=== PATIENT | male | born 1950 | race Caucasian/White ===

== ENCOUNTER 2022-07-25 11:30 | Inpatient (IN) | payer OTHER ==
[2022-07-25] MEDS ORDERED: Ondansetron ODT 4 MG TAB PO PRN (13:12)
[2022-07-25] MEDS ORDERED: HYDROcodone/Acetaminophen 5/325 mg Tablet PO PRN (13:12)
[2022-07-25 14:28] LABS: Troponin I Less than 0.010 ng/mL (< 0.028)
[2022-07-25 14:47] VITALS: BMI 38.1
[2022-07-25] MEDS ORDERED: Clindamycin (PEDI) 600 MG in Syringe 0 ML IVPB SCH (15:00)
[2022-07-25] MEDS: Clindamycin/D5W 600 MG in Premix Bag 1 BAG IVPB SCH ×2 (15:59→20:17)
[2022-07-25] MEDS: Warfarin Sodium 7.5 MG TAB PO SCH (18:10)
[2022-07-25] MEDS: Atorvastatin Calcium 40 MG TAB PO SCH (20:18)
[2022-07-25] MEDS: Famotidine 20 MG TAB PO SCH (20:18)
[2022-07-26] MEDS ORDERED: Regadenoson 0.4 MG/5 ML SYRINGE ONE (09:08)
[2022-07-26] MEDS: Clindamycin/D5W 600 MG in Premix Bag 1 BAG IVPB SCH ×3 (14:01→21:12)
[2022-07-26] MEDS: Famotidine 20 MG TAB PO SCH ×2 (14:05→21:12)
[2022-07-26] MEDS: Aspirin 81 mg Enteric Coated Tablet PO SCH (14:24)
[2022-07-26] MEDS: Saccharomyces boulardii 250 MG CAP PO SCH (14:24)
[2022-07-26] MEDS: Warfarin Sodium 7.5 MG TAB PO SCH (17:13)
[2022-07-26] MEDS: Atorvastatin Calcium 40 MG TAB PO SCH (21:12)
[2022-07-27 04:54] LABS: #Eosinphils 0.2 thou/uL (0.0-0.7); #Lymphocytes 1.7 thou/uL (1.20-3.40); #Monocytes 0.6 thou/uL (0.11-0.59); #Neutrophils 4.8 thou/uL (1.40-6.50); %Basophils 0.3 % (0.0-1.0); %Lymphocytes 23.4 % (21.0-51.0); %Monocytes 7.8 % (0.0-10.0); %Neutrophils 65.5 % (42.0-75.0); Mean Corpuscular HGB CONC 31.2 g/dL (32.0-36.0); Mean Corpuscular Hemoglobin 29.6 pg (27.0-31.0); Mean Corpuscular Volume 94.8 fl (78.0-98.0); Mean Platelet Volume 7.9 fL (7.4-10.4); Platelet Count 184 10x3/uL (130-400); RBC Distribution Width 13.2 % (11.5-14.5); Red Blood Cell (RBC) Count 5.08 mill/uL (4.70-6.10); White Blood Cell (WBC) Count 7.3 10x3/uL (4.8-10.8)
[2022-07-27 05:05] LABS: Anion Gap 15 mmol/L (10-20); BUN (Urea Nitrogen) 17 mg/dL (8.4-25.7); Calc. Creatinine Clearance 131 mL/min (70-130); Calcium 8.8 mg/dL (7.8-10.44); Carbon Dioxide 18 mmol/L (23-31); Chloride 109 mmol/L (98-107); Estimated GFR 91; Glucose 120 mg/dL (83-110); Potassium 3.9 mmol/L (3.5-5.1); Sodium 138 mmol/L (136-145)
[2022-07-27] MEDS ORDERED: Furosemide 40 MG/4 ML VIAL SLOW IVP SCH (09:00)
[2022-07-27 09:03] LABS: INR-International Normal Ratio 1.3; Prothrombin Time 16.5 sec (12.0-14.7)
[2022-07-27] MEDS: Saccharomyces boulardii 250 MG CAP PO SCH (09:15)
[2022-07-27] MEDS: Aspirin 81 mg Enteric Coated Tablet PO SCH (09:15)
[2022-07-27] MEDS: Famotidine 20 MG TAB PO SCH (09:15)
[2022-07-27] MEDS: Clindamycin/D5W 600 MG in Premix Bag 1 BAG IVPB SCH (09:16)
[2022-07-27 11:40] VITALS: BP 144/59; TEMP 97.5
== END 2022-07-27 12:15 | disposition home or self-care (01) | DRG 603 ==
LOC: EEVIPCON → CCU 12:44 → 2NO 16:31
PROVIDERS: ADMIT Hospitalist; ATTEND Hospitalist
PROC: 3E033XZ Introduction of Vasopressor into Peripheral Vein, Percutaneous Approach (ICD-10-PCS; principal; 2022-07-25)
DX: L03.116 Cellulitis of left lower limb (principal); I48.20 Chronic atrial fibrillation, unspecified; I50.32 Chronic diastolic (congestive) heart failure; I95.2 Hypotension due to drugs; L03.115 Cellulitis of right lower limb; R07.89 Other chest pain; I25.10 Atherosclerotic heart disease of native coronary artery without angina pectoris; J44.9 Chronic obstructive pulmonary disease, unspecified; G47.33 Obstructive sleep apnea (adult) (pediatric); I11.0 Hypertensive heart disease with heart failure; T46.3X5A Adverse effect of coronary vasodilators, initial encounter; Z79.01 Long term (current) use of anticoagulants; Z91.148 Patient's other noncompliance with medication regimen for other reason; Z79.899 Other long term (current) drug therapy; Z79.82 Long term (current) use of aspirin; Z95.5 Presence of coronary angioplasty implant and graft; Z87.891 Personal history of nicotine dependence
CPT/HCPCS: 36415; 78452; 80048; 83605; 83880; 85025; 85610; 86140; 93017; 93970; 97139; A9500; J1650; J1940; J2785; J3490

== ENCOUNTER 2023-08-15 02:54 | Inpatient (IN) | payer OTHER ==
[2023-08-15] MEDS ORDERED: Nitroglycerin 0.4 MG TAB (25 Tab Bottle) SL PRN (03:50)
[2023-08-15] MEDS ORDERED: Ipratropium/Albuterol 3 ML NEB NEB PRN (04:01)
[2023-08-15] MEDS ORDERED: Dextrose 5% in Water 1,000 ML IV PRN (04:01)
[2023-08-15] MEDS ORDERED: HumaLOG 300 UNITS/3 ML VIAL SC PRN (04:01)
[2023-08-15] MEDS ORDERED: Dextrose 50% Abboject 50 ML SYRINGE SLOW IVP PRN (04:01)
[2023-08-15] MEDS ORDERED: Glucagon 1 MG/ML KIT IM PRN (04:01)
[2023-08-15] MEDS ORDERED: Senokot S 8.6-50 MG TAB PO PRN (04:05)
[2023-08-15] MEDS ORDERED: Ondansetron ODT 4 MG TAB PO PRN (04:05)
[2023-08-15] MEDS ORDERED: Calcium Carbonate 500 MG ChewTAB PO PRN (04:05)
[2023-08-15] MEDS ORDERED: Acetaminophen 325 MG TAB PO PRN (04:05)
[2023-08-15] MEDS ORDERED: Ondansetron PF 4 MG/2 ML Vial IVP PRN (04:05)
[2023-08-15] MEDS ORDERED: hydrALAZINE 20 MG/ML VIAL SLOW IVP PRN (04:38)
[2023-08-15 05:14] VITALS: BMI 36.0
[2023-08-15 05:18] LABS: #Basophils Less than 0.03 10x3/uL (0.0-0.2); #Eosinphils Less than 0.03 10x3/uL (0.0-0.7); %Basophils 0.2 % (0.0-1.0); %Lymphocytes 8.6 % (21.0-51.0); %Monocytes 0.9 % (0.0-10.0); %Neutrophils 89.7 % (42.0-75.0); Hematocrit 49.8 % (42.0-52.0); Hemoglobin 16.1 g/dL (14.0-18.0); Mean Corpuscular HGB CONC 32.3 g/dL (32.0-36.0); Mean Corpuscular Hemoglobin 30.6 pg (27.0-31.0); Mean Corpuscular Volume 94.5 fL (78.0-98.0); Mean Platelet Volume 9.8 fL (7.4-10.4); Platelet Count 169 10x3/uL (130-400); RBC Distribution Width 15.1 % (11.5-14.5); Red Blood Cell (RBC) Count 5.27 mill/uL (4.70-6.10)
[2023-08-15 05:42] LABS: ALT (SGPT) 25 U/L (8-55); AST (SGOT) 22 U/L (5-34); Albumin 3.4 g/dL (3.4-4.8); Alkaline Phosphatase 91 U/L (40-110); Anion Gap 17 mmol/L (10-20); BUN (Urea Nitrogen) 25 mg/dL (8.4-25.7); Bilirubin, Total 2.2 mg/dL (0.2-1.2); Calc. Creatinine Clearance 106 mL/min (70-130); Calcium 9.5 mg/dL (7.8-10.44); Carbon Dioxide 21 mmol/L (23-31); Cardiac Risk 3.6 (Less than 4.5); Chloride 106 mmol/L (98-107); Cholesterol 152 mg/dl (< 200 Desired); Estimated GFR 80; Globulin 4.2 g/dL (2.4-3.5); Glucose 329 mg/dL (83-110); HDL Cholesterol 42 mg/dL (>60 Neg Risk); LDL Cholesterol, Calculated 100 mg/dL; Potassium 4.5 mmol/L (3.5-5.1); Protein, Total 7.6 g/dL (5.8-8.1); Sodium 139 mmol/L (136-145); Triglycerides 52 mg/dL (Less than 150)
[2023-08-15 05:44] LABS: Troponin I 0.014 ng/mL (< 0.028)
[2023-08-15] MEDS: HumaLOG 300 UNITS/3 ML VIAL SC PRN ×2 (06:35→11:21)
[2023-08-15 06:41] LABS: Amphetamine Not Detected (NotDetected); Barbiturates Screen Not Detected (NotDetected); Benzodiazepine Screen Not Detected (NotDetected); Cocaine Metabolite Screen Not Detected (NotDetected); Methadone Not Detected (NotDetected); Methamphetamine Not Detected (NotDetected); Opiate Screen Not Detected (NotDetected); Oxycodone Screen Not Detected (NotDetected); Phencyclidine (PCP) Not Detected (NotDetected); THC/Cannabinoid Screen Not Detected (NotDetected); Tricyclic Screen Not Detected (NotDetected)
[2023-08-15] MEDS: Mometasone 200 MCG/Formoterol 5 MCG 120 PUFF INHALER INH SCH (07:08)
[2023-08-15] MEDS: Aspirin Chewable 81 MG TAB PO SCH (09:11)
[2023-08-15] MEDS: Carvedilol 25 MG TAB PO SCH (09:12)
[2023-08-15] MEDS: Potassium Chloride 20 MEQ TAB PO SCH (09:12)
[2023-08-15] MEDS: Losartan 25 MG TAB PO SCH (09:12)
[2023-08-15] MEDS: Empagliflozin 10 MG TAB PO SCH (09:12)
[2023-08-15] MEDS: Furosemide 20 MG TAB PO SCH (09:12)
[2023-08-15 10:41] VITALS: BP 143/72
[2023-08-15] MEDS: Rivaroxaban 10 MG TAB PO SCH (11:13)
[2023-08-15 12:17] VITALS: TEMP 98.6
[2023-08-15] MEDS ORDERED: Atorvastatin Calcium 40 MG TAB PO SCH (21:00)
== END 2023-08-15 16:15 | DRG 291 ==
LOC: EEVIPCON 03:26 → CCU 03:26
PROVIDERS: ADMIT Student in an Organized Health Care Education/Training Program; ATTEND Internal Medicine
DX: I11.0 Hypertensive heart disease with heart failure (principal); I50.21 Acute systolic (congestive) heart failure; I50.33 Acute on chronic diastolic (congestive) heart failure; J96.01 Acute respiratory failure with hypoxia; I48.20 Chronic atrial fibrillation, unspecified; I16.1 Hypertensive emergency; I25.10 Atherosclerotic heart disease of native coronary artery without angina pectoris; E78.5 Hyperlipidemia, unspecified; J44.9 Chronic obstructive pulmonary disease, unspecified; G47.33 Obstructive sleep apnea (adult) (pediatric); E66.9 Obesity, unspecified; K21.9 Gastro-esophageal reflux disease without esophagitis; F03.90 Unspecified dementia, unspecified severity, without behavioral disturbance, psychotic disturbance, mood disturbance, and anxiety; N40.0 Benign prostatic hyperplasia without lower urinary tract symptoms; Z79.01 Long term (current) use of anticoagulants; Z95.5 Presence of coronary angioplasty implant and graft; Z79.82 Long term (current) use of aspirin; Z79.899 Other long term (current) drug therapy; Z79.52 Long term (current) use of systemic steroids; Z87.891 Personal history of nicotine dependence; Z91.148 Patient's other noncompliance with medication regimen for other reason; Z68.36 Body mass index [BMI] 36.0-36.9, adult; E11.65 Type 2 diabetes mellitus with hyperglycemia; E11.9 Type 2 diabetes mellitus without complications
CPT/HCPCS: 36415; 36416; 36600; 71045; 80053; 80061; 80306; 82805; 83605; 83735; 83880; 84484; 85025; 93005; 93798; 94660; 94760; 96374; 96375; J1815; J1940

== ENCOUNTER 2024-02-03 12:42 | Observation (INO) | payer OTHER ==
[2024-02-03] MEDS ORDERED: Senokot S 8.6-50 MG TAB PO PRN (15:32)
[2024-02-03] MEDS ORDERED: Acetaminophen 325 MG TAB PO PRN (15:32)
[2024-02-03] MEDS ORDERED: Insulin Lispro 100 UNIT/ML 10 ML VIAL SC PRN ×2 (15:32)
[2024-02-03] MEDS ORDERED: Acetaminophen 650 MG Suppository PR PRN (15:32)
[2024-02-03] MEDS ORDERED: Ondansetron PF 4 MG/2 ML Vial IVP PRN (15:32)
[2024-02-03] MEDS ORDERED: Glucagon 1 MG/ML KIT IM PRN (15:32)
[2024-02-03] MEDS ORDERED: Dextrose 50% Abboject 50 ML SYRINGE SLOW IVP PRN (15:32)
[2024-02-03] MEDS ORDERED: Dextrose 5% in Water 1,000 ML IV PRN (15:32)
[2024-02-03] MEDS ORDERED: Ondansetron ODT 4 MG TAB PO PRN (15:32)
[2024-02-03] MEDS ORDERED: Nitroglycerin 0.4 MG TAB (25 Tab Bottle) SL PRN (15:35)
[2024-02-03] MEDS ORDERED: Albuterol 200 PUFF (6.7GM INHALER) INH PRN (15:35)
[2024-02-03] MEDS: Furosemide 40 MG (4 mL) VIAL SLOW IVP SCH (16:14)
[2024-02-03] MEDS: Rivaroxaban 10 MG TAB PO SCH (18:15)
[2024-02-03 18:54] VITALS: BMI 33.8
[2024-02-03] MEDS: Arformoterol 15 MCG/2 ML NEB NEB SCH (19:07)
[2024-02-03] MEDS: Ipratropium Bromide 2.5 ml Neb NEB SCH (19:08)
[2024-02-03] MEDS: Carvedilol 25 MG TAB PO SCH (20:43)
[2024-02-03] MEDS: Atorvastatin Calcium 40 MG TAB PO SCH (20:43)
[2024-02-03] MEDS: Calcium Carbonate 600 MG + Vit D TAB PO SCH (20:43)
[2024-02-04] MEDS: Nystatin Powder 15 GM BOT TOP SCH (00:23)
[2024-02-04 04:17] LABS: #Basophils 0.06 10x3/uL (0.0-0.2); %Basophils 0.7 % (0.0-1.0); %Eosinophils 3.1 % (0.0-10.0); %Lymphocytes 19.6 % (21.0-51.0); %Monocytes 7.8 % (0.0-10.0); %Neutrophils 68.5 % (42.0-75.0); Hematocrit 47.6 % (42.0-52.0); Hemoglobin 14.5 g/dL (14.0-18.0); Mean Corpuscular HGB CONC 30.5 g/dL (32.0-36.0); Mean Corpuscular Hemoglobin 29.5 pg (27.0-31.0); Mean Corpuscular Volume 96.7 fL (78.0-98.0); Mean Platelet Volume 10.4 fL (7.4-10.4); Platelet Count 176 10x3/uL (130-400); RBC Distribution Width 15.8 % (11.5-14.5); Red Blood Cell (RBC) Count 4.92 mill/uL (4.70-6.10)
[2024-02-04 04:49] LABS: ALT (SGPT) 21 U/L (8-55); AST (SGOT) 18 U/L (5-34); Albumin 3.4 g/dL (3.4-4.8); Alkaline Phosphatase 92 U/L (40-110); Anion Gap 14 mmol/L (10-20); BUN (Urea Nitrogen) 24 mg/dL (8.4-25.7); Bilirubin, Total 1.8 mg/dL (0.2-1.2); Calc. Creatinine Clearance 90 mL/min (70-130); Calcium 8.8 mg/dL (7.8-10.44); Carbon Dioxide 27 mmol/L (23-31); Chloride 103 mmol/L (98-107); Estimated GFR 65; Globulin 3.6 g/dL (2.4-3.5); Glucose 154 mg/dL (83-110); Magnesium 2.3 mg/dL (1.6-2.6); Potassium 3.8 mmol/L (3.5-5.1); Sodium 140 mmol/L (136-145)
[2024-02-04] MEDS: Aspirin 81 mg Enteric Coated Tablet PO SCH (08:16)
[2024-02-04] MEDS: DULoxetine 30 MG CAP PO SCH (08:16)
[2024-02-04] MEDS: Furosemide 40 MG (4 mL) VIAL SLOW IVP SCH ×2 (08:16→08:41)
[2024-02-04] MEDS: Potassium Chloride 10 MEQ TAB PO SCH (08:16)
[2024-02-04] MEDS: Empagliflozin 10 MG TAB PO SCH (08:16)
[2024-02-04] MEDS: Amlodipine 5 MG TAB PO SCH (08:59)
[2024-02-04] MEDS ORDERED: Propranolol 10 MG TAB PO SCH (09:00)
[2024-02-04] MEDS ORDERED: Non-Formulary Item 1 EACH (Hydralazine Hcl [Hydralazine Hcl] 50 MG Tablet) PO SCH (09:00)
[2024-02-04] MEDS: Isosorbide Mononitrate 60 MG ER.TAB PO SCH (09:02)
[2024-02-04] MEDS: hydrALAZINE 25 MG TAB PO SCH (09:02)
[2024-02-04 11:31] VITALS: BMI 36.1
[2024-02-05 05:10] LABS: #Basophils 0.04 10x3/uL (0.0-0.2); %Basophils 0.5 % (0.0-1.0); %Eosinophils 3.5 % (0.0-10.0); %Lymphocytes 17.3 % (21.0-51.0); %Monocytes 8.1 % (0.0-10.0); %Neutrophils 70.3 % (42.0-75.0); Hemoglobin 14.7 g/dL (14.0-18.0); Mean Corpuscular HGB CONC 31.3 g/dL (32.0-36.0); Mean Corpuscular Hemoglobin 29.2 pg (27.0-31.0); Mean Corpuscular Volume 93.3 fL (78.0-98.0); Mean Platelet Volume 10.7 fL (7.4-10.4); Platelet Count 157 10x3/uL (130-400); RBC Distribution Width 15.7 % (11.5-14.5); Red Blood Cell (RBC) Count 5.04 mill/uL (4.70-6.10)
[2024-02-05 05:45] LABS: Anion Gap 14 mmol/L (10-20); BUN (Urea Nitrogen) 25 mg/dL (8.4-25.7); Calc. Creatinine Clearance 105 mL/min (70-130); Carbon Dioxide 28 mmol/L (23-31); Chloride 102 mmol/L (98-107); Estimated GFR 79; Glucose 112 mg/dL (83-110); Magnesium 2.3 mg/dL (1.6-2.6); Potassium 3.8 mmol/L (3.5-5.1); Sodium 140 mmol/L (136-145)
[2024-02-05] MEDS: Furosemide 40 MG (4 mL) VIAL SLOW IVP SCH (09:23)
[2024-02-05 11:51] VITALS: TEMP 98.1
[2024-02-05 15:11] VITALS: BP 146/76
[2024-02-05] MEDS: traMADol HCl 50 MG TAB PO SCH (15:16)
[2024-02-05] MEDS: Propranolol 10 MG TAB PO SCH (15:17)
[2024-02-05] MEDS ORDERED: Propranolol 10 MG TAB PO SCH (21:00)
== END 2024-02-05 19:15 ==
LOC: EEVIPCON 14:22 → OBS 14:22
PROVIDERS: ADMIT Hospitalist; ATTEND Internal Medicine
DX: R07.89 Other chest pain (principal); I25.10 Atherosclerotic heart disease of native coronary artery without angina pectoris; I48.91 Unspecified atrial fibrillation; I11.0 Hypertensive heart disease with heart failure; I50.33 Acute on chronic diastolic (congestive) heart failure; J44.9 Chronic obstructive pulmonary disease, unspecified; G47.33 Obstructive sleep apnea (adult) (pediatric); E78.5 Hyperlipidemia, unspecified; N40.0 Benign prostatic hyperplasia without lower urinary tract symptoms; F03.90 Unspecified dementia, unspecified severity, without behavioral disturbance, psychotic disturbance, mood disturbance, and anxiety; E11.9 Type 2 diabetes mellitus without complications; F17.200 Nicotine dependence, unspecified, uncomplicated; J96.01 Acute respiratory failure with hypoxia; Z95.5 Presence of coronary angioplasty implant and graft; Z79.82 Long term (current) use of aspirin; Z79.899 Other long term (current) drug therapy
CPT/HCPCS: 36415; 36416; 80048; 80053; 82310; 83735; 83880; 85025; 94640; 96374; 96376; G0378; J1940; J7644